=== PATIENT | female | born 1930 | race Caucasian/White ===

== ENCOUNTER → 2017-08-28 | Emergency (ER) | payer MEDICARE, BC ==
[~2017-08-28] VITALS: Ht 167.6 cm; Wt 85.5 kg
[~2017-08-28] MED LIST: ADVIL200 MG PO; ALEVE 220MG220 MG PO; ASPIRIN 81M81 MG/TA2 PO; NORVASC 10MG10 MG PO; OMEGA-31 SGL PO; PHARMASSURE GA500 MG PO; PRAVACHOL 20MG20 MG PO; PRINIVIL10 MG PO; STOOL SOFTENER100 M2 PO
[2017-08-28 10:18] VITALS: TEMP 99
[2017-08-28 10:53] LABS: BASO % 0.3 % (0.0-2.0); EOS % 0.5 % (0-4.0); GRAN % 87.6 % (42.2-75.2); HEMATOCRIT 27.4 % (37.0-47.0); HEMOGLOBIN 8.3 g/dl (12.5-16.0); LYMPH # 0.5 (1.2-3.4); LYMPH % 5.6 % (20.0-51.0); MEAN CELL VOLUME 74 fl (80.0-100.0); MEAN CORPUSCULAR HEMOGLOBIN 22 pg (27.0-31.0); MEAN CORPUSCULAR HGB CONC 30 g/dl (33.0-37.0); MONO # 0.5 (0.1-0.6); MONO % 5.6 % (1.7-9.3); PLATELET COUNT 223 K/mm3 (130-400); RED BLOOD COUNT 3.69 M/mm3 (4.10-5.30); REDCELL DISTRIBUTION WIDTH-CV 14.8 % (11.5-14.5)
[2017-08-28 10:58] LABS: INR 1.1 (0.8-3.0); PROTHROMBIN TIME 12.7 SECONDS (9.7-12.8)
[2017-08-28 11:01] LABS: PARTIAL THROMBOPLASTIN TIME 25.6 SECONDS (26.0-37.0)
[2017-08-28 11:03] LABS: ALANINE AMINOTRANSFERASE 24 U/L (9-52); ALBUMIN 4.2 gm/dL (3.5-5.0); ALKALINE PHOSPHATASE 75 U/L (50-136); ANION GAP 10 mmol/L (7-16); AST,SGOT 16 U/L (15-37); BILIRUBIN,TOTAL 0.9 mg/dL (0.0-1.0); BLOOD UREA NITROGEN 17 mg/dL (7-17); CALCIUM 8.5 mg/dL (8.4-10.2); CARBON DIOXIDE 23 mmol/L (22-30); CHLORIDE 105 mmol/L (98-107); CREATININE, serum 0.57 mg/dL (0.52-1.25); GLUCOSE 228 mg/dL (74-106); POTASSIUM 3.9 mmol/L (3.4-5.0); SODIUM 138 mmol/L (137-145); TOTAL PROTEIN 6.8 gm/dL (6.4-8.2)
[2017-08-28 11:17] LABS: TROPONIN-I < 0.012 ng/mL (0.000-0.034)
[2017-08-28 12:28] VITALS: BP 136/57; PULSE 85
== END ==
LOC: COL.ER 10:14
PROVIDERS: Emergency Medicine
DX: I50.9 Heart failure, unspecified (principal); J81.1 Chronic pulmonary edema; D64.9 Anemia, unspecified
CPT/HCPCS: J1940